=== PATIENT | male | born 1990 | race African-American/Black ===

== ENCOUNTER 2023-03-14 20:37 | Emergency (ER) | payer OTHER, SELFPAY ==
[2023-03-14 20:40] VITALS: BP 140/90; BP 96/88; PULSE 86; PULSE 87; RESP 18; TEMP 36.7; O2SAT 97; O2SAT 98; BMI 29.3
--- NOTE | 2023-03-14 21:25 | ED.DENTAL ---
HPI - Dental/Oral General Chief complaint: Dental/Oral Stated complaint: tooth ache Time Seen by Provider: 03/14/23 21:01 Source: patient Mode of arrival: ambulatory Limitations: no limitations History of Present Illness HPI Narrative: patient comes to the emergency room complaining of dental pain. Patient states that 2 days ago, patient noticed that the feeling in his tooth fell out, patient complaining of right-sided headache, facial swelling, ear discomfort. Patient denies any nausea vomiting or diarrhea, no fever or chills. Related Data Previous Rx's Medication Instructions Recorded ketorolac 10 mg tablet 10 mg PO TID PRN pain #10 tabs 03/14/23 penicillin V potassium 500 mg 500 mg PO TID 10 days #30 tabs 03/14/23 tablet Allergies Allergy/AdvReac Type Severity Reaction Status Date / Time bee pollen [BEE STINGS] Allergy Severe ANGIOEDEMA Unverified 12/09/19 16:01 Review of Systems Review of Systems: Constitutional : No Weight loss, No Fever, No Chills, No Night Sweats, No Fatigue, No Malaise ENT/Mouth : Complaining of dental pain right maxillary side No Hearing loss, No Ear Pain, No Nasal Congestion, No Sinus Pain, No Hoarseness, No sore throat, No Rhinorrhea, No Swallowing Difficulty Eyes: No Eye Pain, No Swelling, No Redness, No Foreign Body, No Discharge, No Vision Changes Cardiovascular : No Chest Pain, No SOB, No Dyspnea on Exertion, No Orthopnea, No Edema, No Palpitations Respiratory : No Cough, No Sputum, No Wheezing, No Smoke Exposure, No Dyspnea Gastrointestinal : No Nausea, No Vomiting, No Diarrhea, No Constipation, No abdominal Pain, No Hematochezia, No Melena Genitourinary : no irregular bleeding, No Dysuria, No Urinary Frequency, No Hematuria, No Urinary Incontinence, No Urgency, No Flank Pain, No Urinary Flow Changes, No Hesitancy Musculoskeletal : No joint pain, No Myalgias, No Joint Swelling Skin : No Skin Lesions, No rash Neuro : No Weakness, No Numbness, No Paresthesias, No Loss of Consciousness, No Dizziness, No Headache Psych : No Anxiety/Panic, No Depression, No SI/HI/AH/VH, No Social Issues, Heme/Lymph: No Bruising, No Bleeding,No Lymphadenopathy Endocrine : No Polyuria, No Polydipsia, No Temperature Intolerance Physical Exam Vital Signs: Vital Signs: Last Vital Signs Temp 98.1 F 03/14/23 20:40 Pulse 86 03/14/23 20:40 Resp 18 03/14/23 20:40 BP 96/88 03/14/23 20:40 Pulse Ox 98 03/14/23 20:40 O2 Del Method Room Air 03/14/23 20:40 BMI result Body Mass Index 29.3 Const: Other: Appearance: Alert. Oriented X3. No acute distress. Eyes: Pupils equal, round and reactive to light. . Neck: normal flexion and extension, no stiffness, no crepitus, supple ENT: Pharynx normal. patient has poor dentition, there is erythema in the gums in the maxillary side upper upper maxillary, mild facial swelling on the right side CVS: Normal heart rate and rhythm. Pulses normal. Normal S1 and S2 Respiratory: No respiratory distress. Breath sounds normal. No Wheezing. No rales Abdomen: Soft and nontender. No rigidity. No distention. Skin: Skin warm and dry. Normal skin color. Normal skin turgor. Extremities: No lower extremity edema. No Lacerations. No Rash Neuro: Oriented X 3. No motor deficit. No sensory deficit. Moving all extremities. No slurred speech. CN 2 through 12 grossly intact Psych: calm, cooperative, normal affect Medical Decision Making Medical Decision Making MDM Narrative: - I discussed the physical exam with the patient, patient likely has an abscess. It is not superficial work could easily be drained. Patient was given the 1st dose of penicillin in the ED and 1 dose of IM Toradol - patient will follow-up with his dentist Differential Diagnosis Differential Diagnoses: The differential diagnosis associated with the presentation includes ( dental caries, abscess, gingivitis) Discharge Plan Discharge Clinical Impression: Toothache Patient Disposition: Home, Self-Care Instructions: Toothache (ED) Additional Instructions: Please follow-up with your primary care physician tomorrow. If you have any worsening or new symptoms, please return to the emergency room or call 911 Prescriptions: New ketorolac 10 mg tablet 10 mg PO TID PRN (Reason: pain) Qty: 10 0RF penicillin V potassium 500 mg tablet 500 mg PO TID 10 Days Qty: 30 0RF
[2023-03-14] MEDS: Amoxicillin 500 MG CAPSULE PO (21:48)
[2023-03-14] MEDS: Ketorolac Tromethamine 60 MG/2 ML VIAL IM (21:48)
[2023-03-14 21:54] VITALS: BP 108/71; PULSE 72; RESP 16; TEMP 36.7; O2SAT 97
== END 2023-03-14 22:02 | disposition home or self-care (01) ==
PROVIDERS: Emergency Provider Emergency Medicine
DX: K08.89 Other specified disorders of teeth and supporting structures (principal); F12.90 Cannabis use, unspecified, uncomplicated
CPT/HCPCS: 96372; 99284; J1885